=== PATIENT | male | born 1990 | race Caucasian/White ===

== ENCOUNTER 2023-03-07 20:39 | Emergency (ER) | payer BC, SELFPAY ==
--- NOTE | ~2023-03-07 | XR_ITS ---
EXAMINATION: XR chest 1V portable INDICATION: Cough TECHNIQUE: Portable AP chest at 2212 hours COMPARISON: None available FINDINGS: The lungs are free of acute opacities. No pleural effusion or pneumothorax. The cardiomedia stinal silhouette is normal. IMPRESSION: 1. No acute cardiopulmonary abnormality. Reviewed, dictated and finalized at location A.
[2023-03-07 20:51] VITALS: BP 109/77; PULSE 103; RESP 14; TEMP 36.4; O2SAT 99
[2023-03-07 21:50] LABS: Basophils Percent Auto 0.6 % (0.2-1.2); Eosinophils Absolute Auto 0.3 K/mm3 (0-0.3); Hemoglobin 12.8 g/dL (14.0-18.0); Immature Granulocyte Absolute 0.01 K/mm3 (0.00-0.031); Immature Granulocyte Percent A 0.2 % (0-0.5); Lymphocytes Absolute Auto 2.53 K/mm3 (0.9-3.2); Lymphocytes Percent Auto 39.7 % (18.3-44.2); Mean Corpuscular HGB Conc 32.8 g/dl (32-36); Mean Corpuscular Hemoglobin 30.9 pg (26-34); Mean Corpuscular Volume 94.2 fl (80-100); Mean Platelet Volume 9.3 fl (7.4-10.4); Monocytes Absolute Auto 0.7 K/mm3 (0.1-0.6); Monocytes Percent Auto 10.8 % (2.6-8.5); Neutrophils Absolute Auto 2.8 K/mm3 (1.3-6.7); Neutrophils Percent Auto 43.7 % (45.5-73.1); Platelet Count Result 274 k/mm3 (150-375); Red Blood Count 4.14 M/mm3 (4.6-6.20); Red Cell Distribution Width 13.2 % (11.5-14.5); White Blood Count 6.4 K/mm3 (4.5-10.0)
--- NOTE | 2023-03-07 21:50 | ED.GENADULT ---
HPI - General Adult General Chief complaint: Psychiatric Symptoms Stated complaint: cough, mental health issues Time Seen by Provider: 03/07/23 21:05 History of Present Illness HPI narrative: This is a 32-year-old male presenting ED for suicidal ideation. Patient says that he wants to commit suicide by using heroin or using his knives to end his life. Patient states he has access to a firearm but he has not considered using that. Patient says he is also homicidal although he has not picked a specific person. He says he is just irritated with [place]. He says he is suicidal because he does not have anyone who cares about him. Patient admits using marijuana but denies use of drugs or alcohol. Patient was last hospitalized 3 months ago but he does not know where. Patient is complaining of a cough. No other physical complaints. PMFSH Past Medical History Medical History Depression Social History Social History Substance use type: marijuana, crack/cocaine, heroin, amphetamines, hallucinogens, methamphetamine and prescription drug Exam Narrative: APPEARANCE: Patient is lying in bed, he is rude and irritable Head: atraumatic. EYES: EOMI, NOSE: Atraumatic NECK: Trachea midline RESPIRATORY: No increased rate of breathing CARDIOVASCULAR: RRR, ABDOMINAL: Non-distended MUSCULOSKELETAl: No obvious deformities NEURO: Alert. Moving 4/4 extremities SKIN:: Warm, dry. Normal color PSYCHIATRIC: verbally aggressive Course COPY PREPARER/PA Physician Supervision This is a was performed by both a physician and an APC. I performed all aspects of the MDM as documented w/ the following additions: All questions answered. Patient in agreement w/ disposition. Vital Signs Vital signs: Vital Signs Temperature 97.6 F 03/07/23 20:51 Pulse Rate 103 H 03/07/23 20:51 Respiratory Rate 14 03/07/23 20:51 Blood Pressure 109/77 03/07/23 20:51 Pulse Oximetry 99 03/07/23 20:51 Oxygen Delivery Room Air 03/07/23 20:51 Temperature 97.6 F 03/07/23 20:51 Pulse Rate 103 H 03/07/23 20:51 Respiratory Rate 14 03/07/23 20:51 Blood Pressure 109/77 03/07/23 20:51 Pulse Oximetry 99 03/07/23 20:51 Oxygen Delivery Room Air 03/07/23 20:51 Medical Decision Making MDM Narrative Medical decision making narrative: -Course: 32-year-old presenting with suicidal homicidal ideation. Patient is medically cleared for psychiatric evaluation/admission/transport. Patient was verbally aggressive with MD and crisis staff. He was throwing his urinal around the room. Patient will be given Haldol for sedation. -DDX includes but is not limited to: SI, HI, depression, anxiety, adjustment disorder, polysubstance use disorder -Co-morbidities complicating care: psychiatric illness, polysubstance use disorder -Independent interpretation of studies: laboratory studies within normal limits. Urine positive for cannabinoids. Chest x-ray unremarkable. -Discussion of Management/Consultants: Crisis Center -Interventions: 5 mg Haldol -Shared decision making / Disposition: Vital Signs Vital Signs: Vital Signs Temperature 97.6 F 03/07/23 20:51 Pulse Rate 103 H 03/07/23 20:51 Respiratory Rate 14 03/07/23 20:51 Blood Pressure 109/77 03/07/23 20:51 Pulse Oximetry 99 03/07/23 20:51 Oxygen Delivery Room Air 03/07/23 20:51 Temperature 97.6 F 03/07/23 20:51 Pulse Rate 103 H 03/07/23 20:51 Respiratory Rate 14 03/07/23 20:51 Blood Pressure 109/77 03/07/23 20:51 Pulse Oximetry 99 03/07/23 20:51 Oxygen Delivery Room Air 03/07/23 20:51 Lab Data 03/07/23 21:43 03/07/23 21:43 Labs: Lab Results 03/07/23 03/07/23 Range/Units 21:43 22:57 WBC 6.4 (4.5-10.0) K/mm3 RBC 4.14 L (4.6-6.20) M/mm3 Hgb 12.8 L (14.0-18.0) g/dL Hct 39.0 L (42.0-52.0) % M
[2023-03-07 22:08] LABS: Ethanol < 10 mg/dL (<10)
[2023-03-07 22:10] LABS: Alanine Aminotransferase 60 U/L (6-50); Albumin Level 3.6 g/dL (3.5-5.1); Alkaline Phosphatase 67 U/L (38-126); Anion Gap 4 mmol/L (8-16); Aspartate Amino Transferase 55 U/L (17-59); Bilirubin,Total 0.3 mg/dL (0.2-1.3); Blood Urea Nitrogen 13 mg/dL (9-20); Calcium 8.5 mg/dL (8.4-10.2); Carbon Dioxide 34 mmol/L (22-30); Chloride 103 mmol/L (98-107); Estimated CRCL calculation 115 ml/min; Estimated Glomerular Filt Rate > 60; Glucose 86 mg/dL (65-110); Potassium 3.6 mmol/L (3.4-5.0); Sodium 141 mmol/L (137-145)
[2023-03-07 22:26] LABS: Influenza A QL RT-PCR Negative (Negative); Influenza B QL RT-PCR Negative (Negative); RSV RNA, RT-PCR Negative (Negative); SARS-CoV-2 RNA PCR Negative (Negative)
[2023-03-07 23:10] LABS: Appearance Urine Clear (Clear); Bacteria Urine None Seen /hpf; Bilirubin Urine Negative (Negative); Color Urine Yellow (Yellow); Glucose Urine UA Negative (Negative); Ketones Urine Negative (Negative); Leukocyte Esterase Ur Negative LEU/UL (Negative); Nitrate Urine Negative (Negative); Non Pathogenic Casts 0-2; Protein Urine Negative (Negative); Specific Grav Ur 1.017 (1.001-1.035); Squamous Epithelial Cell Urine None seen /hpf (Few); WBC Urine 0-5 /hpf
[2023-03-07 23:21] LABS: Amphetamine Screen Urine Negative (Negative); Barbiturate Screen Urine Negative (Negative); Benzodiazepines Screen Urine Negative (Negative); Cannabinoid Screen Urine Positive (Negative); Cocaine Screen Urine Negative (Negative); Methadone Screen Urine Negative (Negative); Opiate Screen Urine Negative (Negative); Phencyclidine Screen Urine Negative (Negative)
[2023-03-07 23:48] LABS: Add Urine Microscopic? YES
[2023-03-08] MEDS: HALOPERIDOL LACTATE 5 MG/ML VIAL IM (00:20)
[2023-03-08] MEDS: LORazepam INJ (*CRX) 2 MG/ML VIAL IM (00:20)
--- NOTE | 2023-03-08 02:05 | PC.NURSE ---
Crisis evaluated pt @0000, pt was not cooperative. Pt screaming at Crisis staff. Pt was given Haldol and Ativan at this time.
--- NOTE | 2023-03-08 03:32 | PC.NURSE ---
Pt accepted to [facility]. Pt to be transferred by [facility]. Pt made aware of this but began yelling at this RN stating I just want to sleep! Leave me alone! . Report called to Jacqueline AMBROSIO @[phone]
== END 2023-03-08 04:17 ==
LOC: ANHED 21:35
PROVIDERS: Emergency Provider Emergency Medicine
DX: R45.851 Suicidal ideations (principal); R45.850 Homicidal ideations; Z20.822 Contact with and (suspected) exposure to COVID-19
CPT/HCPCS: 36415; 71045; 80053; 80307; 81001; 84443; 85025; 87637; 96372; 99285; J1630; J2060